=== PATIENT | male | born 1990 | race Caucasian/White ===

== ENCOUNTER 2025-05-21 16:35 | Emergency (ER) | payer MEDICAID | END 2025-05-21 17:23 | disposition home or self-care (01) | LOC: MW.ED 16:35 | DX: K04.7 Periapical abscess without sinus (principal); Z75.3 Unavailability and inaccessibility of health-care facilities; Z91.030 Bee allergy status; Z79.899 Other long term (current) drug therapy | CPT/HCPCS: 99283 ==